=== PATIENT | male | born 1995 | race Caucasian/White ===

== ENCOUNTER 2021-02-19 17:31 | Emergency (ER) | payer MEDICAID, OTHER ==
[~2021-02-19] VITALS: Ht 175.3 cm; Wt 136.1 kg
[2021-02-19 17:33] VITALS: BP 134/77
[2021-02-19] MEDS ORDERED: LIDOCAINE MPF 1% 10 MG/ML VIAL INJ ONE (17:35)
--- NOTE | 2021-02-19 17:50 | NUR ---
25 Y/O M BIB SELF TO ER DUE TO LACERATION TO LEFT THUMB AFTER ACCIDENTALLY CUTTING SELF WITH A [employer] WHILE OPENING A PACKAGE. PMH: NONE NKA
--- NOTE | 2021-02-19 18:00 | NUR ---
ASSISTED ERMD AT BEDSIDE TO SUTURE LEFT THUMB LACERATION. WOUND DRESSED WITH GAUZE THEN SECURED WITH TAPE. PT TOLERATED PROCEDURE WELL.
[2021-02-19 18:49] VITALS: BP 134/77
--- NOTE | 2021-02-19 18:50 | NUR ---
Patient discharged with v/s stable. Written and verbal after care instructions given and explained. Patient verbalized understanding. Ambulatory with steady gait. All questions addressed prior to discharge. Advised to follow up with PMD.
== END 2021-02-19 18:50 | disposition home or self-care (01) ==
LOC: MED 17:31
DX: S61.012A Laceration without foreign body of left thumb without damage to nail, initial encounter (principal); W26.8XXA Contact with other sharp object(s), not elsewhere classified, initial encounter; Y93.89 Activity, other specified; Y92.89 Other specified places as the place of occurrence of the external cause; Y99.8 Other external cause status
CPT/HCPCS: 12002; 99282; J2001

== ENCOUNTER 2021-02-24 15:44 | Emergency (ER) | payer MEDICAID ==
[~2021-02-24] VITALS: Ht 165.1 cm; Wt 136.1 kg
[2021-02-24 16:00] VITALS: BP 150/89
--- NOTE | 2021-02-24 16:04 | NUR ---
NO NEED NURSING TREATMENT.Patient being evaluated by RICK COLINDRES at bedside.
[2021-02-24 16:06] VITALS: BP 150/89
== END 2021-02-24 16:06 | disposition home or self-care (01) ==
LOC: MED 15:44
DX: S41.112D Laceration without foreign body of left upper arm, subsequent encounter (principal); J45.909 Unspecified asthma, uncomplicated; X58.XXXD Exposure to other specified factors, subsequent encounter
CPT/HCPCS: 99281

== ENCOUNTER 2021-03-02 12:40 | Emergency (ER) | payer MEDICAID ==
[~2021-03-02] VITALS: Ht 175.3 cm; Wt 136.1 kg
[2021-03-02 12:51] VITALS: BP 139/49
[2021-03-02 13:05] VITALS: BP 139/49
== END 2021-03-02 13:03 | disposition home or self-care (01) ==
LOC: MED 12:40
DX: S61.012D Laceration without foreign body of left thumb without damage to nail, subsequent encounter (principal); J45.909 Unspecified asthma, uncomplicated; X58.XXXD Exposure to other specified factors, subsequent encounter
CPT/HCPCS: 99281